=== PATIENT | male | born 1980 | race Caucasian/White ===

== ENCOUNTER 2017-12-15 05:29 | Inpatient (IN) | payer OTHER ==
[2017-12-15] MEDS ORDERED: LACTATED RINGER'S 1,000 ML IV* (06:00)
[2017-12-15] MEDS ORDERED: CEFAZOLIN 1 GM INJ (07:00)
[2017-12-15] MEDS ORDERED: LIDOCAINE 2% (SDV) 5 ML INJ (07:05)
[2017-12-15] MEDS ORDERED: SUCCINYLCHOLINE CHLORIDE 100 MG/5 ML SYG IV (07:05)
[2017-12-15] MEDS ORDERED: GLYCOPYRROLATE 0.4 MG INJ (07:05)
[2017-12-15] MEDS ORDERED: PROPOFOL 20 ML (07:05)
[2017-12-15] MEDS ORDERED: ROCURONIUM 50 MG INJ ×2 (07:05→12:41)
[2017-12-15] MEDS ORDERED: MEPERIDINE 100 MG INJ (07:05)
[2017-12-15] MEDS ORDERED: NEOSTIGMINE 3 MG/3 ML SYRINGE (07:05)
[2017-12-15] MEDS ORDERED: CA CHLORIDE 10% 10 ML SYRINGE (07:07)
[2017-12-15] MEDS ORDERED: ACETAMINOPHEN 325 MG TAB PO (07:30)
[2017-12-15] MEDS ORDERED: ONDANSETRON 4 MG INJ IV (07:30)
[2017-12-15] MEDS ORDERED: CEPASTAT LOZENGE MT (07:30)
[2017-12-15] MEDS ORDERED: NALOXONE (0.4 MG/ML) INJ IV (07:30)
[2017-12-15] MEDS ORDERED: DIPHENHYDRAMINE 25 MG CAP PO (07:30)
[2017-12-15] MEDS: CEFAZOLIN 1 GM/50 ML (PMX) 50 ML IVPB ×3 (07:30→23:02)
[2017-12-15] MEDS ORDERED: HYDROmorphONE 0.5 MG/0.5 ML SYG IV (07:30)
[2017-12-15] MEDS ORDERED: AL HYDROX/MG HYDROX/SIMETH 30 ML CUP PO (07:30)
[2017-12-15] MEDS ORDERED: ZOLPIDEM 5 MG TAB PO (07:30)
[2017-12-15] MEDS: CEFAZOLIN 2 GM/50 ML (PMX) 50 ML IVPB (07:55)
[2017-12-15] MEDS: HEPARIN 1000 UNITS/ML 10 ML INJ (08:36)
[2017-12-15] MEDS: LIDOCAINE 1%/EPI 30 ML INJ (08:36)
[2017-12-15] MEDS: THROMBIN 5000 UNIT VIAL (08:37)
[2017-12-15] MEDS: SURGIFOAM POWDER 1 GM KIT (08:37)
[2017-12-15] MEDS: POLYMYXIN/BACITRACIN 1L IRRIG (08:37)
[2017-12-15] MEDS ORDERED: ONDANSETRON 4 MG INJ (12:05)
[2017-12-15] MEDS ORDERED: HYDROmorphONE (0.2 MG/ML) 10ML SYG IV ×3 (12:52→13:00)
[2017-12-15] MEDS ORDERED: FENTAnyl 50 MCG/ML VIAL (12:56)
[2017-12-15] MEDS ORDERED: MEPERIDINE 25 MG INJ (12:57)
[2017-12-15] MEDS ORDERED: METOCLOPRAMIDE 10 MG INJ IV (13:00)
[2017-12-15] MEDS ORDERED: FENTAnyl 50 MCG/ML VIAL IV ×2 (13:00)
[2017-12-15] MEDS ORDERED: OXYCODONE/ACETAMINOPHEN (5/325) TAB PO ×2 (13:00)
[2017-12-15] MEDS: GABAPENTIN 300 MG CAP PO ×3 (13:00→20:47)
[2017-12-15] MEDS ORDERED: hydrALAzine 20 MG INJ IV (13:00)
[2017-12-15] MEDS ORDERED: MIDAZOLAM 1 MG/ML 2 ML INJ IV (13:00)
[2017-12-15] MEDS ORDERED: DIPHENHYDRAMINE 50 MG INJ IV (13:00)
[2017-12-15] MEDS ORDERED: EPHEDrine SULFATE 50 MG/5 ML SYG IV (13:00)
[2017-12-15] MEDS ORDERED: LABETALOL HCL 20MG INJ IV (13:00)
[2017-12-15] MEDS: MEPERIDINE 25 MG INJ IV (13:04)
[2017-12-15] MEDS: HYDROmorphONE (0.2 MG/ML) 10ML SYG IV ×2 (13:05→13:32)
[2017-12-15] MEDS: FENTAnyl 50 MCG/ML VIAL IV ×3 (13:09→13:23)
[2017-12-15] MEDS: ONDANSETRON 4 MG INJ IV (13:11)
[2017-12-15] MEDS: DIPHENHYDRAMINE 50 MG INJ IV (13:19)
[2017-12-15] MEDS: HYDROmorphONE 0.2 MG/ML PCA IV ×2 (13:40→18:56)
[2017-12-15] MEDS: DOCUSATE SODIUM 100 MG CAP PO ×2 (14:50→20:47)
[2017-12-15] MEDS: D5W-0.45 NACL + KCL 20 MEQ 1,000 ML IV ×2 (14:53→17:10)
[2017-12-16] MEDS: oxyCODONE 15 MG TAB PO ×4 (00:21→19:51)
[2017-12-16] MEDS: D5W-0.45 NACL + KCL 20 MEQ 1,000 ML IV ×3 (00:22→23:10)
[2017-12-16] MEDS: HYDROmorphONE 0.2 MG/ML PCA IV ×3 (02:29→13:24)
[2017-12-16 05:16] LABS: ADD MAN DIFF? NO
[2017-12-16 05:21] LABS: BASOPHILS % 0.3 % (0.0-2.0); EOSINOPHILS % 0.4 % (0.0-7.0); HEMATOCRIT 38.8 % (42.0-52.0); HEMOGLOBIN 13.3 g/dl (14.0-18.0); LYMPHOCYTES # 1.6 10^3/ul (0.8-2.9); LYMPHOCYTES % 21.2 % (15.0-51.0); MEAN CORPUSCULAR HEMOGLOBIN 28.5 pg (29.0-33.0); MEAN CORPUSCULAR HGB CONC 34.3 g/dl (32.0-37.0); MEAN CORPUSCULAR VOLUME 83.1 fl (82.0-101.0); MEAN PLATELET VOLUME 11.6 fl (7.4-10.4); MONOCYTE # 0.7 10^3/ul (0.3-0.9); MONOCYTES % 9.5 % (0.0-11.0); NEUTROPHIL # 5.3 10^3/ul (1.6-7.5); NEUTROPHILS % 68.3 % (39.0-77.0); PLATELET COUNT 189 10^3/UL (140-415); RED BLOOD COUNT 4.67 10^6/ul (4.70-6.10); RED CELL DISTRIBUTION WIDTH 11.8 % (11.5-14.5)
[2017-12-16 05:21] LABS: WHITE BLOOD COUNT 7.7 10^3/ul (4.8-10.8)
[2017-12-16 05:37] LABS: ANION GAP 15 (8-16); BLOOD UREA NITROGEN 10 mg/dl (7-20); CALCIUM 8.6 mg/dl (8.4-10.2); CARBON DIOXIDE 28 mmol/L (21-31); CHLORIDE 103 mmol/L (97-110); CREATININE 0.58 mg/dl (0.61-1.24); GLUCOSE 135 mg/dl (70-220); MAGNESIUM 1.6 mg/dl (1.7-2.5); POTASSIUM 3.8 mmol/L (3.5-5.1); SODIUM 142 mmol/L (135-144)
[2017-12-16] MEDS: CYCLOBENZAPRINE 10 MG TAB PO ×2 (08:55→16:24)
[2017-12-16] MEDS: DOCUSATE SODIUM 100 MG CAP PO ×2 (08:55→21:11)
[2017-12-16] MEDS: FAMOTIDINE 20 MG INJ IV ×2 (08:55→21:11)
[2017-12-16] MEDS: GABAPENTIN 300 MG CAP PO ×3 (08:55→21:11)
[2017-12-17] MEDS: oxyCODONE 15 MG TAB PO ×3 (02:16→15:12)
[2017-12-17] MEDS: HYDROmorphONE 0.2 MG/ML PCA IV ×3 (03:31→22:08)
[2017-12-17] MEDS: D5W-0.45 NACL + KCL 20 MEQ 1,000 ML IV ×2 (03:36→19:10)
[2017-12-17 05:16] LABS: ADD MAN DIFF? NO
[2017-12-17 05:24] LABS: BASOPHILS % 0.4 % (0.0-2.0); EOSINOPHILS # 0.1 10^3/ul (0.0-0.5); EOSINOPHILS % 1.2 % (0.0-7.0); HEMATOCRIT 36.2 % (42.0-52.0); HEMOGLOBIN 12.2 g/dl (14.0-18.0); LYMPHOCYTES % 35.6 % (15.0-51.0); MEAN CORPUSCULAR HEMOGLOBIN 28.4 pg (29.0-33.0); MEAN CORPUSCULAR HGB CONC 33.7 g/dl (32.0-37.0); MEAN CORPUSCULAR VOLUME 84.2 fl (82.0-101.0); MEAN PLATELET VOLUME 11.4 fl (7.4-10.4); MONOCYTES % 11.8 % (0.0-11.0); NEUTROPHIL # 4.3 10^3/ul (1.6-7.5); NEUTROPHILS % 50.8 % (39.0-77.0); PLATELET COUNT 163 10^3/UL (140-415); RED CELL DISTRIBUTION WIDTH 11.9 % (11.5-14.5)
[2017-12-17 05:24] LABS: WHITE BLOOD COUNT 8.5 10^3/ul (4.8-10.8)
[2017-12-17 05:56] LABS: ANION GAP 14 (8-16); BLOOD UREA NITROGEN 6 mg/dl (7-20); CALCIUM 8.4 mg/dl (8.4-10.2); CARBON DIOXIDE 28 mmol/L (21-31); CHLORIDE 103 mmol/L (97-110); CREATININE 0.61 mg/dl (0.61-1.24); GLUCOSE 110 mg/dl (70-220); MAGNESIUM 1.8 mg/dl (1.7-2.5); POTASSIUM 3.9 mmol/L (3.5-5.1); SODIUM 141 mmol/L (135-144)
[2017-12-17] MEDS: DOCUSATE SODIUM 100 MG CAP PO ×2 (08:48→21:36)
[2017-12-17] MEDS: FAMOTIDINE 20 MG INJ IV ×2 (08:48→21:36)
[2017-12-17] MEDS: GABAPENTIN 300 MG CAP PO ×3 (08:48→21:37)
[2017-12-17] MEDS: POLYETHYLENE GLYCOL 17 GM PACKET PO (13:08)
[2017-12-17] MEDS: SENNA TAB PO ×2 (13:08→21:37)
[2017-12-17] MEDS: CYCLOBENZAPRINE 10 MG TAB PO (13:09)
[2017-12-18] MEDS: HYDROmorphONE 0.2 MG/ML PCA IV (04:05)
[2017-12-18] MEDS: D5W-0.45 NACL + KCL 20 MEQ 1,000 ML IV (04:47)
[2017-12-18 05:19] LABS: ADD MAN DIFF? NO
[2017-12-18 05:24] LABS: WHITE BLOOD COUNT 7.7 10^3/ul (4.8-10.8)
[2017-12-18 05:24] LABS: BASOPHILS % 0.4 % (0.0-2.0); EOSINOPHILS # 0.2 10^3/ul (0.0-0.5); EOSINOPHILS % 2.7 % (0.0-7.0); HEMATOCRIT 34.4 % (42.0-52.0); HEMOGLOBIN 11.8 g/dl (14.0-18.0); LYMPHOCYTES # 2.6 10^3/ul (0.8-2.9); LYMPHOCYTES % 34.1 % (15.0-51.0); MEAN CORPUSCULAR HEMOGLOBIN 28.7 pg (29.0-33.0); MEAN CORPUSCULAR HGB CONC 34.3 g/dl (32.0-37.0); MEAN CORPUSCULAR VOLUME 83.7 fl (82.0-101.0); MEAN PLATELET VOLUME 11.3 fl (7.4-10.4); MONOCYTE # 0.8 10^3/ul (0.3-0.9); MONOCYTES % 10.7 % (0.0-11.0); NEUTROPHILS % 51.8 % (39.0-77.0); PLATELET COUNT 159 10^3/UL (140-415); RED BLOOD COUNT 4.11 10^6/ul (4.70-6.10); RED CELL DISTRIBUTION WIDTH 11.5 % (11.5-14.5)
[2017-12-18 06:02] LABS: ANION GAP 15 (8-16); BLOOD UREA NITROGEN 7 mg/dl (7-20); CALCIUM 8.7 mg/dl (8.4-10.2); CARBON DIOXIDE 30 mmol/L (21-31); CHLORIDE 101 mmol/L (97-110); CREATININE 0.57 mg/dl (0.61-1.24); GLUCOSE 129 mg/dl (70-220); MAGNESIUM 1.8 mg/dl (1.7-2.5); POTASSIUM 3.9 mmol/L (3.5-5.1); SODIUM 142 mmol/L (135-144)
[2017-12-18] MEDS: BISACODYL 10 MG SUPP PR (06:29)
[2017-12-18] MEDS: FAMOTIDINE 20 MG INJ IV (08:37)
[2017-12-18] MEDS: SENNA TAB PO (08:37)
[2017-12-18] MEDS: GABAPENTIN 300 MG CAP PO (08:37)
[2017-12-18] MEDS: DOCUSATE SODIUM 100 MG CAP PO (08:37)
[2017-12-18] MEDS: oxyCODONE 15 MG TAB PO (08:38)
== END 2017-12-18 12:27 | disposition home or self-care (01) | DRG 455 ==
LOC: REC 05:29 → MS1 14:17
PROC: 0SG00A0 Fusion of Lumbar Vertebral Joint with Interbody Fusion Device, Anterior Approach, Anterior Column, Open Approach (ICD-10-PCS; principal; 2017-12-15 07:00)
PROC: 0SG00K1 Fusion of Lumbar Vertebral Joint with Nonautologous Tissue Substitute, Posterior Approach, Posterior Column, Open Approach (ICD-10-PCS; 2017-12-15 07:00)
PROC: 0ST20ZZ Resection of Lumbar Vertebral Disc, Open Approach (ICD-10-PCS; 2017-12-15 07:00)
PROC: 0QP004Z Removal of Internal Fixation Device from Lumbar Vertebra, Open Approach (ICD-10-PCS; 2017-12-15 07:00)
PROC: 07DS3ZZ Extraction of Vertebral Bone Marrow, Percutaneous Approach (ICD-10-PCS; 2017-12-15 07:00)
DX: M51.16 Intervertebral disc disorders with radiculopathy, lumbar region (principal); E88.81 Metabolic syndrome and other insulin resistance; M48.061 Spinal stenosis, lumbar region without neurogenic claudication; E66.01 Morbid (severe) obesity due to excess calories; G47.00 Insomnia, unspecified; Z98.1 Arthrodesis status; G89.4 Chronic pain syndrome; Z87.891 Personal history of nicotine dependence
CPT/HCPCS: 72020; 72110; 80048; 83735; 85025; 86850; 86900; 86901; 86999; 87086; 97110; 97116; 97161; 97530